=== PATIENT | female | born 1990 | race Caucasian/White ===

== ENCOUNTER 2019-11-07 04:47 | Emergency (ER) | payer OTHER ==
[2019-11-07 05:33] LABS: #Eosinphils 0.2 thou/uL (0.0-0.7); #Lymphocytes 3.2 thou/uL (1.20-3.40); #Monocytes 0.6 thou/uL (0.11-0.59); #Neutrophils 6.9 thou/uL (1.40-6.50); %Basophils 0.4 % (0.0-1.0); %Eosinophils 2.2 % (0.0-10.0); %Monocytes 5.6 % (0.0-10.0); %Neutrophils 62.7 % (42.0-75.0); Hemoglobin 11.8 g/dL (12.0-16.0); Mean Corpuscular HGB CONC 33.2 g/dL (32.0-36.0); Mean Corpuscular Hemoglobin 27.2 pg (27.0-31.0); Mean Platelet Volume 7.3 fL (7.4-10.4); Platelet Count 292 thou/uL (130-400); Red Blood Cell (RBC) Count 4.32 mill/uL (4.20-5.40)
[2019-11-07 06:02] LABS: Bilirubin Negative (Negative); Blood, Urine 2+ (Negative); Glucose, Urine (Dipstick) Normal (Negative); Leukocyte Negative Leu/uL (Negative); Nitrite Negative (Negative); Protein, Urine (Dipstick) 30 mg/dL (Neg-Trace); Urobilinogen Normal mg/dL (Less than 2)
[2019-11-07 06:03] LABS: Clarity Cloudy (Clear)
[2019-11-07 06:12] LABS: Bacteria/HPF 1+ HPF (None Seen); RBC/HPF Greater than 50 HPF (0-3); Squamous Epithelial 0-3 HPF (0-3); WBC/HPF 0-3 HPF (0-3)
--- NOTE | 2019-11-07 07:51 | ULT ---
PELVIC ULTRASOUND: Date: 11/07/2019 COMPARISON: None. HISTORY: female with pelvic pain and vaginal bleeding. TECHNIQUE: Multiplanar Sommer scale and color Doppler images obtained in a transabdominal and transvaginal pelvic ultrasound. Spectral analysis with Doppler waveforms of the ovaries performed. FINDINGS: There is an irregular gestational sac within the uterus. This contains a pole and yolk sac. No heart tones were able to be detected at this time. [place]-rump length is 0.80 cm, which estimate s a gestational age of 6 weeks and 5 days. There is a small amount of subchorionic hemorrhage adjacent to the gestational sac. No free fluid see n in the pelvis. Both ovaries are normal in size and appearance and demonstrate normal internal flow. No obvious ectopic is identified. IMPRESSION: Small intrauterine gestational sac containing a fetus without detectable heart rate. This likely repr esents demise. A spontaneous in progress is likely. POS: [facility]
== END 2019-11-07 07:37 | disposition home or self-care (01) ==
LOC: ERS 04:47
DX: O20.0 Threatened abortion (principal); Z3A.01 Less than 8 weeks gestation of pregnancy
CPT/HCPCS: 36415; 76856; 81003; 81015; 84702; 85025; 86900; 86901